=== PATIENT | female | born 1985 | race Caucasian/White ===

== ENCOUNTER 2017-05-12 15:51 | Inpatient (IN) ==
[2017-05-12] MEDS ORDERED: LEVOFLOXACIN INJ 500 MG in PREMIX 1 EACH IV SCH (17:00)
[2017-05-12 17:24] LABS: ABG Base Excess -2.5 MMOL/L (-2.5-2.5); ABG HCO3 19.5 MMOL/L (20-26); ABG Oxygen Saturation 96.9 % (95-100); ABG PH 7.477 (7.35-7.45); ABG PO2 83.4 MM HG (80-95); ABG TCO2 20.3 MMOL/L (23-27)
[2017-05-12] MEDS ORDERED: GLUCAGON 1 MG VIAL IM PRN (17:24)
[2017-05-12] MEDS ORDERED: DEXTROSE 50% 25 GM/50 ML VIAL IV PRN (17:24)
[2017-05-12] MEDS ORDERED: ZALEPLON 5 MG CAPSULE PO PRN (17:25)
[2017-05-12] MEDS ORDERED: MORPHINE 2 MG/1 ML SYRINGE IV PRN (17:25)
--- NOTE | 2017-05-12 17:40 | Hospitalist History & Physical ---
Addendum entered and electronically signed by Otis Euceda MD 05/12/17 19:59: I evaluated this patient and completed independent history and physical examination. I coordinated care with GERMANIA Hackett. I agree with the documentation that she provides below. The patient's examination reveals right greater than left CVA tenderness. The patient has mild diaphoresis consistent with infection. Ledbetter McBurney point tenderness was not present. The patient is now on IV antibiotics, hydration, and CT scan has been obtained. Interpretation is pending. Original Note: <Katy Card - Last Filed: 05/12/17 17:27> History of Present Illness Chief complaint: Low back pain/fever/chills History of present illness: This is a very pleasant 32-year-old female that presented to [facility] as a direct admit from [facility] for the evaluation of lower back pain, chills, and fever. The patient has a medical history significant for [id number] diabetes mellitus, depression, and morbid obesity. Patient reported the onset of symptoms 3 days prior to presentation. The patient reported her symptoms initially started as lower back pain and gradually worsened to include fever chills. She reported that she took her temperature on yesterday and it was noted at 104.9. The patient reported that she took some acetaminophen and applied cool compresses however, her fevers fail to improve. She did report that her fever decreased however she remained febrile and reported a fever at 103.4. She reported that she remained febrile throughout the night despite multiple interventions; prompting her to present to the [facility] for further evaluation. The patient was assessed at the time of presentation the [facility]. The patient was noted to be afebrile at 98.9. Labs were obtained which were significant for white blood cell count 21.7, hemoglobin 40.1, hematocrit 42.8, platelet count 205. Urinalysis was essentially remarkable for leukocyte esterase moderate amount, negative for nitrates, urine protein 30, urine glucose normal, ketones 40, white blood cellS 20-50, bacteria few, squamous epithelial cells few, and no mucus was noted. The patient was also noted to be experiencing right-sided costovertebral angle tenderness upon gentle palpation. Hospital Medicine at [facility] was contacted regarding the inpatient admission and the patient was subsequently transferred to [facility] for continuation of care. The patient has been admitted to the hospitalist service. Home medications have been reviewed and reconciled. CODE STATUS discussed; patient is FULL CODE. Home Medications Medication Instructions Recorded Confirmed Type Fluoxetine HCl [Prozac] 80 mg PO DAILY 05/12/17 05/12/17 History buPROPion XL [Wellbutrin Xl] 300 mg PO DAILY 05/12/17 05/12/17 History metFORMIN [Glucophage] 500 mg PO DAILY 05/12/17 05/12/17 History Allergies Allergy/AdvReac Type Severity Reaction Status Date / Time No Known Allergies Allergy Verified 05/12/17 17:15 Medical,Surgical,& Family Hx - Medical History Reproductive: History of: Reproductive Problems (PCOS) - Surgical History Reproductive Surgeries: Surgical HX of;: Gynecologic Surgery (one ovary removed) - Family History Family History: Reports;: Family Hypertension - Social History Smoking Status: Never smoker Frequency of Alcohol Use: None Type of Drug Use: None Marital Status: Lives With:: Spouse Functional capacity: independent ambulation 12 point system: reviewed and no additional remarkable complaints except as stated Exam - Constitutional Vitals: Period Temp Pulse Resp BP Sys/Hammond Pulse Ox Last 24 Hr 98.4 F 94 20 129/68 92 General appearance: no acute distress, morbidly obese - Head Head exam: Present: normal inspection, normocephalic, atraumatic - Eye Eye exam: Present: EOMI, conjunctival injection Pupils: Present: LADY - ENT ENT exam: Present: normal exam, normal external ear exam - Neck Neck exam: Present: normal inspection, thyromegaly. Absent: lymphadenopathy, meningismus, tenderness - Respiratory Respiratory exam: Present: clear to auscultation bilaterally, other - Cardiovascular Cardiovascular exam: Present: regular rate and rhythm. Absent: carotid bruit, diastolic murmur, gallop, irregular rhythm, JVD, rubs, systolic murmur - GI/Abdominal GI/Abdominal exam: Present: normal bowel sounds - Extremities Exam Extremities exam: Present: normal inspection, normal capillary refill, full ROM , edema (Trace edema noted to bilateral lower extremities) - Back Exam Back exam: Present: CVA tenderness (R) - Neurological Exam Neurological exam: Present: alert, oriented X3 ( ) - Psychiatric Psychiatric exam: Present: normal affect, normal mood - Skin Skin exam: Present: normal color, warm, dry Results - Labs Lab Results: I have reviewed the past 24 hour labs <Otis Euceda - Last Filed: 05/12/17 18:23> History of Present Illness History of present illness: Ms. Love is a 32 year old female Exam - Constitutional Vitals: Period Temp Pulse Resp BP Sys/Hammond Pulse Ox Last 24 Hr 98.4 F 94 20 129/68 92 Results - Labs CBC & BMP: 05/12/17 17:40
[2017-05-12] MEDS: SODIUM CHLORIDE 0.9% 1,000 ML IV SCH (17:47)
[2017-05-12 18:09] LABS: Basophils # 0.1 10*3/uL (0.0-0.2); Basophils % 0.3 % (0.0-0.8); Eosinophils # 0.1 10*3/uL (0.0-0.87); Eosinophils % 0.4 % (0.00-10.9); Hematocrit 41.1 VOL% (35.7-47.0); Hemoglobin 13.9 GM/DL (12.0-16.0); Immature Granulocytes % 0.6 %; Immature Granulocytes Absolute 0.12 #; Lymphocytes # 3.6 10*3/uL (1.4-4.0); Lymphocytes % 18.5 % (21.3-54.2); Mean Corpuscular HGB Conc 33.8 GM/DL (32-36); Mean Corpuscular Hemoglobin 31 PG (27-34); Mean Corpuscular Volume 91.9 FL (87-102); Mean Platelet Volume 9.8 FL (9.6-12.0); Monocytes # 1.8 10*3/uL (0.11-0.8); Monocytes % 9.3 % (1.7-12.7); Neutrophils # 13.9 10*3/uL (1.4-7.4); Neutrophils % 70.9 % (38.7-73.9); Platelet Count 209 T/CUMM (130-400); Red Blood Count 4.47 MC/CUMM (3.8-5.5); Red Cell Distribution Width 12.8 % (9.3-17.3); White Blood Count 19.6 T/CUMM (4-12)
[2017-05-12 18:40] LABS: Albumin 3.6 G/DL (3.4-5.0); Bilirubin,Total 1.2 MG/DL (0.2-1.0); Calcium 8.9 MG/DL (8.5-10.1); Osmolality,Calculated 272.7 MOS/KG (273-304); Potassium 3.2 MMOL/L (3.5-5.1); Risk Ratio 2.2; Total Protein 7.5 G/DL (6.4-8.3); VLDL CHOLESTEROL 10.6 MG/DL
[2017-05-12] MEDS: PIPERACILLIN/TAZOBACTAM 3,375 MG in SODIUM CHLORIDE 0.9% 50 ML IV SCH (19:03)
--- NOTE | 2017-05-12 19:56 | CT Report ---
Exam: CT abdomen and pelvis with intravenous contrast Exam date: 05/12/2017 4:37 PM Clinical History: 32 years,Female, fever abdominal pain, generalized Technique: Axial computed tomography images of the abdomen and pelvis with intravenous contrast. All CT scans at this facility use one or more dose reduction techniques. Automated exposure control, MA/KV adjustment per patient size (including targeted exam Square dose is matched to indication) or iterative reconstruction technique Comparison: September 23, 2014 Findings: Lower thorax: No acute pathology within the lung bases. Abdomen: Liver: Right hepatic lobe hemangioma is stable in the interim. Gallbladder and bile ducts: Pancreas: Pancreas is normal. Spleen: Spleen is normal. Adrenals: No adrenal mass. Kidneys and ureters: Normal in size, echotexture and morphology. No hydronephrosis. No ureteral calculus. Stomach and bowel: No evidence of acute gastritis, colitis or enteritis. No bowel obstruction. Appendix: No primary or secondary signs to suggest appendicitis. Pelvis: Bladder: Unremarkable Reproductive: Unremarkable as visualized. Abdomen and pelvis: Intraperitoneal space: No pneumoperitoneum. No free intraperitoneal fluid Bones/joints: No acute osseous abnormality. Soft tissues: No mass Vasculature: No aortic aneurysm. Lymph nodes: No adenopathy Impression: 1. No acute findings to explain patient's symptoms PROCEDURE INTERPRETED AT [facility] DEPARTMENT OF RADIOLOGY Final Report Signed by: Marta Prado MD
[2017-05-12] MEDS: DOCUSATE SODIUM 100 MG CAPSULE PO SCH (21:09)
[2017-05-12] MEDS: INSULIN REGULAR 100 UNIT/ML SUBCUT SCH (21:09)
[2017-05-12] MEDS: ENOXAPARIN 40 MG/0.4 ML SYRINGE SUBCUT SCH (21:09)
[2017-05-13] MEDS: PIPERACILLIN/TAZOBACTAM 3,375 MG in SODIUM CHLORIDE 0.9% 50 ML IV SCH (01:52)
[2017-05-13] MEDS: ACETAMINOPHEN 325 MG TABLET PO PRN ×3 (04:16→18:19)
[2017-05-13] MEDS: IBUPROFEN 800 MG TABLET PO PRN ×3 (05:30→21:51)
[2017-05-13 07:18] LABS: Basophils % 0.3 % (0.0-0.8); Eosinophils # 0.1 10*3/uL (0.0-0.87); Eosinophils % 0.4 % (0.00-10.9); Hematocrit 40.7 VOL% (35.7-47.0); Hemoglobin 13.4 GM/DL (12.0-16.0); Immature Granulocytes % 0.4 %; Immature Granulocytes Absolute 0.07 #; Lymphocytes # 1.5 10*3/uL (1.4-4.0); Lymphocytes % 9.5 % (21.3-54.2); Mean Corpuscular HGB Conc 32.9 GM/DL (32-36); Mean Corpuscular Hemoglobin 30 PG (27-34); Mean Corpuscular Volume 91.7 FL (87-102); Mean Platelet Volume 10.4 FL (9.6-12.0); Monocytes # 1.4 10*3/uL (0.11-0.8); Neutrophils # 12.7 10*3/uL (1.4-7.4); Neutrophils % 80.4 % (38.7-73.9); Platelet Count 176 T/CUMM (130-400); Red Blood Count 4.44 MC/CUMM (3.8-5.5); Red Cell Distribution Width 12.5 % (9.3-17.3); White Blood Count 15.8 T/CUMM (4-12)
[2017-05-13] MEDS ORDERED: DEXTROSE 50% 25 GM/50 ML SYRINGE IV PRN (07:30)
[2017-05-13 07:45] LABS: Albumin 3.3 G/DL (3.4-5.0); Bilirubin,Total 1.3 MG/DL (0.2-1.0); Calcium 8.4 MG/DL (8.5-10.1); Magnesium 2.3 MG/DL (1.8-2.4); Osmolality,Calculated 274.5 MOS/KG (273-304); Potassium 3.5 MMOL/L (3.5-5.1); Total Protein 6.9 G/DL (6.4-8.3)
[2017-05-13 08:36] LABS: HIV Antigen/Antibody Result Nonreactive (Nonreactive)
[2017-05-13] MEDS ORDERED: PIPERACILLIN/TAZOBACTAM 3,375 MG in SODIUM CHLORIDE 0.9% 100 ML IV SCH (09:00)
[2017-05-13] MEDS: FLUoxetine 20 MG CAPSULE PO SCH (09:17)
[2017-05-13] MEDS: DOCUSATE SODIUM 100 MG CAPSULE PO SCH ×2 (09:17→21:51)
[2017-05-13] MEDS: PANTOPRAZOLE 40 MG TABLET PO SCH (09:17)
[2017-05-13] MEDS: INSULIN REGULAR 100 UNIT/ML SUBCUT SCH ×3 (09:17→17:26)
[2017-05-13] MEDS: SODIUM CHLORIDE 0.9% 1,000 ML IV SCH ×3 (09:18→22:59)
--- NOTE | 2017-05-13 10:55 | Hospitalist Progress Note ---
<Katy Card - Last Filed: 05/13/17 13:03> Assessment and Plan (1) Urinary tract infection Status: Acute Assessment and plan: We will continue rehydration, empiric antibiotic coverage, and await culture sensitivity for further direction. Current Visit: Yes (2) Leukocytosis Status: Acute Assessment and plan: Pancultures obtained; empiric antibiotic coverage in progress. Noted decrease in white blood cell count; WBC is noted 15.8 today down from 19.6 at the time of admission. CT abdomen and pelvis was essentially unremarkable for the presence of any acute abnormalities. We will continue supportive care as previously ordered. Current Visit: Yes Hospitalist: Subjective Interval history: Patient seen and examined; chart reviewed. No significant overnight events reported per staff. Exam - Constitutional Vitals: Period Temp Pulse Resp BP Sys/Hammond Pulse Ox Last 24 Hr 97.5 F-103.0 F 67-96 18-22 113-130/58-73 92-99 General appearance: no acute distress, over weight - Head Head exam: Present: normal inspection, normocephalic, atraumatic - Eye Eye exam: Present: EOMI. Absent: conjunctival injection Pupils: Present: LADY, normal accommodation - ENT ENT exam: Present: normal exam, normal external ear exam, normal oropharynx - Neck Neck exam: Present: normal inspection. Absent: lymphadenopathy, meningismus, tenderness, thyromegaly - Respiratory Respiratory exam: Present: clear to auscultation bilaterally. Absent: rales, rhonchi, stridor, wheezes - Cardiovascular Cardiovascular exam: Present: regular rate and rhythm. Absent: carotid bruit, diastolic murmur, gallop, JVD, rubs, systolic murmur - GI/Abdominal GI/Abdominal exam: Present: normal bowel sounds, soft - Extremities Exam Extremities exam: Present: normal inspection, normal capillary refill, full ROM. Absent: edema - Back Exam Back exam: Present: CVA tenderness (R) - Neurological Exam Neurological exam: Present: alert, oriented X3, altered - Psychiatric Psychiatric exam: Present: normal affect, normal mood - Skin Skin exam: Present: normal color, warm, dry Results - Labs CBC & BMP: 05/13/17 04:47 05/13/17 04:47 Lab Results: I have reviewed the past 24 hour labs <Bentley Smith - Last Filed: 05/13/17 13:13> Hospitalist: Subjective Interval history: Patient seen and examined independently of SURESH Card, agree with history, assessment and plan as documented. Attempting to recollect urine sample for ua. Patient feeling better and leukocytosis is improving. Remains febrile this morning. Continue abx. F/u UA Exam - Constitutional Vitals: Period Temp Pulse Resp BP Sys/Hammond Pulse Ox Last 24 Hr 97.5 F-103.0 F 67-96 18-22 113-130/58-73 92-99 Results - Labs CBC & BMP: 05/13/17 04:47 05/13/17 04:47
[2017-05-13 11:28] LABS: Hepatitis A Ab IgM Quant 0.12 Index; Hepatitis A Ab IgM Result Negative (Negative); Hepatitis B Core IgM Quant 0.14 Index; Hepatitis B Core IgM Result Negative (Negative); Hepatitis B Surface Ag Quant 0.38 Index; Hepatitis B Surface Ag Result Negative (Negative); Hepatitis C Virus Ab Result Negative (Negative)
[2017-05-13 13:11] LABS: Apearance,Urine Slightly Hazy (Clear); Bacteria,Urine Few /HPF (Few); Bilirubin,Urine Negative (Negative); Blood, Urine Moderate mg/dL (Negative); Glucose,Urine (UA) Negative (Negative); Ketones,Urine Negative (Negative); Nitrite,Urine Negative (Negative); Protein,Urine Negative; RBC,Urine 6 /HPF (0-4); Squamous Epithelial Cell,Urine Occasional /HPF (0-10); Urine Color Yellow (Yellow); Urine Specific Gravity 1.011 (1.001-1.035); Urine Urobilinogen < 2.0 EU/DL (0.2-1.0); WBC,Urine 31 /HPF (0-6)
[2017-05-13] MEDS: ONDANSETRON 4 MG/2 ML VIAL IV PRN (14:58)
--- NOTE | 2017-05-13 19:45 | Order Completion Report ---
See report scanned to EMR
[2017-05-13] MEDS: ENOXAPARIN 40 MG/0.4 ML SYRINGE SUBCUT SCH (21:51)
[2017-05-14] MEDS: INSULIN REGULAR 100 UNIT/ML SUBCUT SCH ×5 (03:54→21:38)
[2017-05-14] MEDS: ONDANSETRON 4 MG/2 ML VIAL IV PRN (06:40)
[2017-05-14 07:23] LABS: Basophils # 0.1 10*3/uL (0.0-0.2); Basophils % 0.3 % (0.0-0.8); Eosinophils % 0.2 % (0.00-10.9); Hematocrit 39.6 VOL% (35.7-47.0); Hemoglobin 13.3 GM/DL (12.0-16.0); Immature Granulocytes % 0.6 %; Lymphocytes % 17.2 % (21.3-54.2); Mean Corpuscular HGB Conc 33.6 GM/DL (32-36); Mean Corpuscular Hemoglobin 31 PG (27-34); Mean Corpuscular Volume 92.5 FL (87-102); Mean Platelet Volume 10.1 FL (9.6-12.0); Monocytes # 1.4 10*3/uL (0.11-0.8); Monocytes % 8.2 % (1.7-12.7); Neutrophils # 12.8 10*3/uL (1.4-7.4); Neutrophils % 73.5 % (38.7-73.9); Platelet Count 194 T/CUMM (130-400); Red Blood Count 4.28 MC/CUMM (3.8-5.5); Red Cell Distribution Width 12.7 % (9.3-17.3); White Blood Count 17.4 T/CUMM (4-12)
[2017-05-14 07:46] LABS: Calcium 8.5 MG/DL (8.5-10.1); Magnesium 2.2 MG/DL (1.8-2.4); Osmolality,Calculated 279.1 MOS/KG (273-304); Potassium 3.9 MMOL/L (3.5-5.1)
[2017-05-14 07:58] LABS: Band Neutrophils 4 % (0-10); Hypochromasia Slight; Lymphocytes 24 % (20-55); Platelet Estimate Adequate; Segmented Neutrophils 67 % (50-85); Total Cells Counted 100
[2017-05-14] MEDS: IBUPROFEN 800 MG TABLET PO PRN (08:09)
[2017-05-14] MEDS: PANTOPRAZOLE 40 MG TABLET PO SCH (08:10)
[2017-05-14] MEDS: DOCUSATE SODIUM 100 MG CAPSULE PO SCH ×2 (08:10→21:37)
[2017-05-14] MEDS: FLUoxetine 20 MG CAPSULE PO SCH (08:10)
[2017-05-14] MEDS: SODIUM CHLORIDE 0.9% 1,000 ML IV SCH ×2 (08:22→19:25)
[2017-05-14] MEDS ORDERED: DEXTROSE 50% 25 GM/50 ML VIAL IV PRN (08:30)
--- NOTE | 2017-05-14 12:29 | Infectious Disease Consult ---
Assessment and Plan (1) Fever Status: Acute Assessment and plan: Anything to see which could be possible as a urinary tract infection. I expected her to have actual CVA tenderness but this was not elicited on exam. I am therefore doubtful that she has pyelonephritis. She did get bitten by tick but if she had a rickettsial infection would expect abnormalities of the CBC, specifically cytopenias. West Nile fever is a possibility as well but again would expect cytopenias. Recommendations: 1. Agree with empiric ceftriaxone 2. Add doxycycline 3. Check rickettsial serologies, as well as West Nile serology 4. Chest x-ray for completeness sake 4. Follow-up urine culture results, as well as blood cultures Thank you very much for the consult. Will follow. Discussed with patient's mother at bedside Discussed with Dr. Smith Current Visit: Yes History of Present Illness Chief complaint: Fever History of present illness: Ms. Love is a 32 year old female who is well until 3 days ago when she started having fever to over 103 at home. About a day before she had mild sore throat and was feeling some malaise for few days prior. Patient returned from [place] about one half weeks ago. She states she visited friends and family did not have any significant exposures except he did find a tick on her left breast which was easily pulled off her skin and he did not appear to be engorged with blood. She never developed a rash in the area of the tick bite. Patient reports onset also of pain to the back a bit to the right side since the day before the onset of the fever. No increased urinary frequency hematuria or dysuria. Because of his fever she came to hospital. She has been having intermittent fever since admission even on ceftriaxone. She has not had any cough shortness of breath or pleuritic chest pain. She had nausea and vomited once this morning but no abdominal pain or diarrhea. Her appetite has been fair. No ill contacts at home. Home Medications Medication Instructions Recorded Confirmed Type Fluoxetine HCl [Prozac] 80 mg PO DAILY 05/12/17 05/12/17 History buPROPion XL [Wellbutrin Xl] 300 mg PO DAILY 05/12/17 05/12/17 History metFORMIN [Glucophage] 500 mg PO DAILY 05/12/17 05/12/17 History Allergies Allergy/AdvReac Type Severity Reaction Status Date / Time No Known Allergies Allergy Verified 05/12/17 17:15 12 point system: reviewed and no additional remarkable complaints except as stated (Per HPI) Medical,Surgical,& Family Hx - Medical History Reproductive: History of: Reproductive Problems (PCOS) - Surgical History Reproductive Surgeries: Surgical HX of;: Gynecologic Surgery (one ovary removed) - Family History Family History: Reports;: Family Hypertension - Social History Smoking Status: Never smoker Frequency of Alcohol Use: None Type of Drug Use: None Infectious Disease Exam H&P - Constitutional Vitals: Vital Signs Temp Pulse Resp BP Pulse Ox 98.2 F 66 18 122/59 95 05/14/17 11:43 05/14/17 11:43 05/14/17 11:43 05/14/17 11:43 05/14/17 11:43 Intake and Output 05/13/17 05/14/17 05/14/17 23:59 07:59 15:59 Intake Total 1290 / 1290 240 / 240 1050 / 1050 Balance 1290 / 1290 240 / 240 1050 / 1050 Intake: IV 1050 / 1050 1050 / 1050 Zosyn 3,375 mg In Ns 50 50 / 50 ml @ 25 mls/hr IV Q8H ROSSY Rx#:[id number] Ns 1,000 ml @ 125 mls/hr 1000 / 1000 1000 / 1000 IV .Q8H ROSSY Rx#: [id number] Rocephin 1,000 mg In Ns 50 / 50 50 ml @ 100 mls/hr IV Q24H ROSSY Rx#:[id number] Oral 240 / 240 240 / 240 Other: Voiding Method Toilet Toilet # Voids 2 2 # Bowel Movements 0 0 Exam: General: Patient very comfortable, completely nontoxic appearing, smiling, ambulating HEENT: Mucous membranes pink and moist, anicteric acyanotic, LADY, no oropharyngeal exudates Neck: Supple, no thyroid gland enlargement, no lymphadenopathy Respiratory system: Breath sounds vesicular, no crepitations or wheezes Cardiovascular: Normal S1 and S2, no murmurs appreciated Abdomen: Normal bowel sounds, soft nontender throughout, no organomegaly or mass Genitourinary: No suprapubic pain or bladder distention, no CVA tenderness Extremities: no edema Skin: No rash Reports - Labs CBC & BMP: 05/14/17 06:09 05/14/17 06:09 Labs: Laboratory Results - last 24 hr 05/12/17 05/13/17 05/13/17 16:37 17:11 20:20 WBC RBC Hgb Hct MCV MCH MCHC RDW Plt Count MPV Neut % (Auto) Lymph % (Auto) [place] % (Auto) Eos % (Auto) Baso % (Auto) Neut # (Auto) Lymph # (Auto) [place] # (Auto) Eos # (Auto) Baso # (Auto) Total Counted Immature Gran % Nucleated RBC % Immature Gran # Segmented Neutrophils Band Neutrophils Lymphocytes Monocytes Nucleated RBCs # Platelet Estimate Immature Plt Fraction Hypochromasia Sodium Potassium Chloride Carbon Dioxide Anion Gap BUN Creatinine GFR Calculation BUN/Creatinine Ratio Glucose POC Glucose 114 H 75 Calculated Osmolality Calcium Magnesium Urine Color Yellow Urine Appearance Slightly hazy Urine pH 5.0 Ur Specific [place] 1.011 Urine Protein Negative Urine Glucose (UA) Negative Urine Ketones Negative Urine Blood Moderate Urine Nitrate Negative Urine Bilirubin Negative Urine Urobilinogen < 2.0 H Urine Leukocytes Small H Urine RBC 6 Urine WBC 31 Ur Squamous Epith Cells Occasional Urine Bacteria Few Ur Culture Indicated? Results to follow 05/14/17 05/14/17 05/14/17 06:09 06:09 08:43 WBC 17.4 H RBC 4.28 Hgb 13.3 Hct 39.6 MCV 92.5 MCH 31 MCHC 33.6 RDW 12.7 Plt Count 194 MPV 10.1 Neut % (Auto) 73.5 Lymph % (Auto) 17.2 L [place] % (Auto) 8.2 Eos % (Auto) 0.2 Baso % (Auto) 0.3 Neut # (Auto) 12.8 H Lymph # (Auto) 3.0 [place] # (Auto) 1.4 H Eos # (Auto) 0.0 Baso # (Auto) 0.1 Total Counted 100 Immature Gran % 0.6 Nucleated RBC % 0.0 Immature Gran # 0.10 Segmented Neutrophils 67 Band Neutrophils 4 Lymphocytes 24 Monocytes 5 Nucleated RBCs # 0.00 Platelet Estimate Adequate Immature Plt Fraction 0.0 Hypochromasia Slight Sodium 142 Potassium 3.9 Chloride 109 H Carbon Dioxide 25 Anion Gap 11.9 BUN 6 L Creatinine 0.80 GFR Calculation 125 BUN/Creatinine Ratio 7.00 Glucose 86 POC Glucose 163 H Calculated Osmolality 279.1 Calcium 8.5 Magnesium 2.2 Urine Color Urine Appearance Urine pH Ur Specific [place] Urine Protein Urine Glucose (UA) Urine Ketones Urine Blood Urine Nitrate Urine Bilirubin Urine Urobilinogen Urine Leukocytes Urine RBC Urine WBC Ur Squamous Epith Cells Urine Bacteria Ur Culture Indicated? 05/14/17 11:18 WBC RBC Hgb Hct MCV MCH MCHC RDW Plt Count MPV Neut % (Auto) Lymph % (Auto) [place] % (Auto) Eos % (Auto) Baso % (Auto) Neut # (Auto) Lymph # (Auto) [place] # (Auto) Eos # (Auto) Baso # (Auto) Total Counted Immature Gran % Nucleated RBC % Immature Gran # Segmented Neutrophils Band Neutrophils Lymphocytes Monocytes Nucleated RBCs # Platelet Estimate Immature Plt Fraction Hypochromasia Sodium Potassium Chloride Carbon Dioxide Anion Gap BUN Creatinine GFR Calculation BUN/Creatinine Ratio Glucose POC Glucose 82 Calculated Osmolality Calcium Magnesium Urine Color Urine Appearance Urine pH Ur Specific [place] Urine Protein Urine Glucose (UA) Urine Ketones Urine Blood Urine Nitrate Urine Bilirubin Urine Urobilinogen Urine Leukocytes Urine RBC Urine WBC Ur Squamous Epith Cells Urine Bacteria Ur Culture Indicated? - Reports Microbiology: Microbiology 05/13/17 Unknown Urine Culture - Preliminary Urine,Clean Catch No Growth at 24 hours. 05/13/17 05:38 Blood Culture - Preliminary Blood No growth at 1 day 05/13/17 05:38 Blood Culture - Preliminary Blood No growth at 1 day 05/13/17 17:39 Influenza Types A,B Antigen (KATHRINE) - Final Nasal Aspirate Negative for Influenza A Ag Negative for Influenza B Ag 05/12/17 17:40 Blood Culture - Preliminary Blood No growth at 1 day 05/12/17 17:40 Blood Culture - Preliminary Blood No growth at 1 day - Diagnostic Findings Procedure: CT Abdomen and Pelvis: image reviewed by me, report reviewed by me ( No mention of perinephric stranding)
[2017-05-14] MEDS: DOXYCYCLINE HYCLATE INJ 100 MG in SODIUM CHLORIDE 0.9% 100 ML IV SCH (14:42)
[2017-05-14] MEDS: ACETAMINOPHEN 325 MG TABLET PO PRN ×2 (14:52→21:41)
--- NOTE | 2017-05-14 14:58 | XRay Report ---
XR chest 2V Indication: Fever, sore throat Comparison: None Technique: Frontal and lateral views of the chest. Findings: Heart size within normal limits. Chronic change of the lungs without focal consolidation, pleural effusion, or pneumothorax. Visualized osseous and surrounding soft tissue structures demonstrate no acute abnormality. Diffuse osteopenia. IMPRESSION: No acute cardiopulmonary process demonstrated. PROCEDURE INTERPRETED AT [facility] DEPARTMENT OF RADIOLOGY Final Report Signed by: Dr Brady Kuhn
--- NOTE | 2017-05-14 17:09 | Hospitalist Progress Note ---
<Katy Card - Last Filed: 05/14/17 17:07> Assessment and Plan (1) Urinary tract infection Status: Acute Assessment and plan: We will continue rehydration, empiric antibiotic coverage, and await culture sensitivity for further direction. 05/13-we will continue empiric antibiotic coverage as previously ordered. Urine culture preliminary report reported no growth at 24 hours. We will continue supportive care. Current Visit: Yes (2) Leukocytosis Status: Acute Assessment and plan: Pancultures obtained; empiric antibiotic coverage in progress. Noted decrease in white blood cell count; WBC is noted 15.8 today down from 19.6 at the time of admission. CT abdomen and pelvis was essentially unremarkable for the presence of any acute abnormalities. We will continue supportive care as previously ordered. 05/14-the patient was febrile overnight; T-max 101.4. Blood culture are essentially unremarkable no growth to date reported. White blood cell count noted at 17.4. We will continue supportive care. We will consult infectious disease to evaluate fever of unknown origin. We will continue empiric antibiotic coverage and await further direction. Current Visit: Yes Hospitalist: Subjective Interval history: Patient seen and examined; chart reviewed. Patient remained febrile overnight; T-max noted at 101.4. Infectious disease consultations were requested to evaluate. Exam - Constitutional Vitals: Period Temp Pulse Resp BP Sys/Hammond Pulse Ox Last 24 Hr 98.2 F-102 F 66-98 18-20 91-122/51-59 92-98 General appearance: over weight - Head Head exam: Present: normal inspection, normocephalic, atraumatic - Eye Eye exam: Present: EOMI, conjunctival injection Pupils: Present: LADY, normal accommodation - ENT ENT exam: Present: normal exam, normal external ear exam, normal oropharynx - Neck Neck exam: Present: normal inspection. Absent: lymphadenopathy, meningismus, tenderness, thyromegaly - Respiratory Respiratory exam: Present: clear to auscultation bilaterally. Absent: rales, rhonchi, stridor, wheezes - Cardiovascular Cardiovascular exam: Present: regular rate and rhythm. Absent: carotid bruit, diastolic murmur, gallop, JVD, rubs, systolic murmur - GI/Abdominal GI/Abdominal exam: Present: normal bowel sounds, soft - Extremities Exam Extremities exam: Present: normal inspection, normal capillary refill, full ROM. Absent: edema - Back Exam Back exam: Present: normal inspection - Neurological Exam Neurological exam: Present: alert, oriented X3, CN II-XII intact - Psychiatric Psychiatric exam: Present: normal affect, normal mood - Skin Skin exam: Present: normal color, warm, dry Results - Labs CBC & BMP: 05/14/17 06:09 05/14/17 06:09 Lab Results: I have reviewed the past 24 hour labs <Bentley Smith - Last Filed: 05/14/17 17:49> Hospitalist: Subjective Interval history: Patient seen and examined independently of SURESH Card, agree with assessment and plan as documented. ID on board. Started on doxycycline Exam - Constitutional Vitals: Period Temp Pulse Resp BP Sys/Hammond Pulse Ox Last 24 Hr 98.2 F-102 F 66-98 18-20 91-122/51-59 92-98 Results - Labs CBC & BMP: 05/14/17 06:09 05/14/17 06:09
[2017-05-14] MEDS: ENOXAPARIN 40 MG/0.4 ML SYRINGE SUBCUT SCH (21:37)
[2017-05-15] MEDS: DOXYCYCLINE HYCLATE INJ 100 MG in SODIUM CHLORIDE 0.9% 100 ML IV SCH ×2 (01:14→18:06)
[2017-05-15] MEDS: SODIUM CHLORIDE 0.9% 1,000 ML IV SCH ×3 (01:15→23:59)
[2017-05-15 06:34] LABS: Basophils % 0.2 % (0.0-0.8); Eosinophils # 0.2 10*3/uL (0.0-0.87); Eosinophils % 1.4 % (0.00-10.9); Hematocrit 32.3 VOL% (35.7-47.0); Immature Granulocytes % 0.4 %; Immature Granulocytes Absolute 0.05 #; Lymphocytes # 3.1 10*3/uL (1.4-4.0); Mean Corpuscular HGB Conc 34.4 GM/DL (32-36); Mean Corpuscular Hemoglobin 31 PG (27-34); Mean Platelet Volume 10.2 FL (9.6-12.0); Monocytes # 1.2 10*3/uL (0.11-0.8); Monocytes % 10.1 % (1.7-12.7); Neutrophils # 6.9 10*3/uL (1.4-7.4); Neutrophils % 60.9 % (38.7-73.9); Platelet Count 159 T/CUMM (130-400); Red Blood Count 3.55 MC/CUMM (3.8-5.5); Red Cell Distribution Width 12.7 % (9.3-17.3)
[2017-05-15 06:35] LABS: Hemoglobin 11.1 GM/DL (12.0-16.0); White Blood Count 11.4 T/CUMM (4-12)
[2017-05-15 06:59] LABS: Calcium 7.9 MG/DL (8.5-10.1); Magnesium 2.2 MG/DL (1.8-2.4); Osmolality,Calculated 281.8 MOS/KG (273-304); Potassium 3.6 MMOL/L (3.5-5.1)
[2017-05-15 07:05] LABS: Band Neutrophils 4 % (0-10); Eosinophils 1 % (0-10); Hypochromasia 1+; Lymphocytes 28 % (20-55); Segmented Neutrophils 57 % (50-85); Total Cells Counted 100
[2017-05-15 07:06] LABS: Microcytosis Slight; Platelet Estimate Adequate
[2017-05-15] MEDS: INSULIN REGULAR 100 UNIT/ML SUBCUT SCH ×4 (10:09→20:05)
[2017-05-15] MEDS: DOCUSATE SODIUM 100 MG CAPSULE PO SCH ×2 (10:14→20:28)
[2017-05-15] MEDS: PANTOPRAZOLE 40 MG TABLET PO SCH (10:14)
--- NOTE | 2017-05-15 11:01 | Hospitalist Progress Note ---
<Katy Card - Last Filed: 05/15/17 10:59> Assessment and Plan (1) Urinary tract infection Status: Acute Assessment and plan: We will continue rehydration, empiric antibiotic coverage, and await culture sensitivity for further direction. 05/13-we will continue empiric antibiotic coverage as previously ordered. Urine culture preliminary report reported no growth at 24 hours. We will continue supportive care. 05/14-urine culture unremarkable for any growth at 48 hours. Current Visit: Yes (2) Leukocytosis Status: Acute Assessment and plan: Pancultures obtained; empiric antibiotic coverage in progress. Noted decrease in white blood cell count; WBC is noted 15.8 today down from 19.6 at the time of admission. CT abdomen and pelvis was essentially unremarkable for the presence of any acute abnormalities. We will continue supportive care as previously ordered. 05/14-the patient was febrile overnight; T-max 101.4. Blood culture are essentially unremarkable no growth to date reported. White blood cell count noted at 17.4. We will continue supportive care. We will consult infectious disease to evaluate fever of unknown origin. We will continue empiric antibiotic coverage and await further direction. 05/15-patient evaluated by infectious disease on yesterday recommendations were given. The patient was started on doxycycline in addition to Rocephin. White blood cell count noted at 11.4. We will continue doxycycline and Rocephin per infectious disease recommendation. Will recheck CBC in a.m. Current Visit: Yes Hospitalist: Subjective Interval history: Patient seen and examined; chart reviewed. No significant overnight events reported per staff. The patient was evaluated by infectious disease on yesterday and recommendations were given. The patient has remained afebrile since the initiation of doxycycline. White blood cell count noted at 11.4 today. If condition continues to improve, the patient may be appropriate for discharge in a.m. Exam - Constitutional Vitals: Period Temp Pulse Resp BP Sys/Hammond Pulse Ox Last 24 Hr 98.2 F-99.1 F 66-82 18-20 111-123/57-61 92-97 General appearance: morbidly obese - Head Head exam: Present: normal inspection, normocephalic, atraumatic - Eye Eye exam: Present: EOMI. Absent: conjunctival injection Pupils: Present: LADY, normal accommodation - ENT ENT exam: Present: normal exam, normal external ear exam, normal oropharynx - Neck Neck exam: Present: normal inspection. Absent: lymphadenopathy, meningismus, tenderness, thyromegaly - Respiratory Respiratory exam: Present: clear to auscultation bilaterally. Absent: rales, rhonchi, stridor, wheezes - Cardiovascular Cardiovascular exam: Present: regular rate and rhythm. Absent: carotid bruit, diastolic murmur, gallop, JVD, rubs, systolic murmur - GI/Abdominal GI/Abdominal exam: Present: normal bowel sounds, soft - Extremities Exam Extremities exam: Present: normal inspection, normal capillary refill, full ROM. Absent: edema - Back Exam Back exam: Present: normal inspection - Neurological Exam Neurological exam: Present: alert, oriented X3, CN II-XII intact - Psychiatric Psychiatric exam: Present: normal affect, normal mood - Skin Skin exam: Present: normal color, warm, dry Results - Labs CBC & BMP: 05/15/17 05:39 05/15/17 05:39 Lab Results: I have reviewed the past 24 hour labs <Bentley Smith - Last Filed: 05/15/17 18:28> Hospitalist: Subjective Interval history: Patient seen and examined independently of SURESH Card. Agree with assessment and plan as documented. ID assisting possible discharge soon. Exam - Constitutional Vitals: Period Temp Pulse Resp BP Sys/Hammond Pulse Ox Last 24 Hr 98.8 F-99.9 F 65-82 18-20 106-140/56-68 94-97 Results - Labs CBC & BMP: 05/15/17 05:39 05/15/17 05:39
[2017-05-15] MEDS: FLUoxetine 20 MG CAPSULE PO SCH (12:49)
--- NOTE | 2017-05-15 16:26 | Infectious Disease Progress ---
Assessment and Plan (1) Fever Status: Acute Assessment and plan: Suspect viral infection. Patient generally nontoxic, she has not had fever for 24 hours. I thought she may have had a UTI but urine cultures negative. Recommendations: Can continue current antibiotics for now, however blood cultures negative then I would discontinue ceftriaxone and we can switch her to oral doxycycline and complete a seven-day course. Discussed with patient's mother at bedside Current Visit: Yes Infectious Disease - PN: Subj Interval history: Patient complained of feeling malaise when I saw this afternoon. She has not had any fever since yesterday morning but T-max 99.9 earlier this afternoon. She complains of headache this afternoon and some pain in her neck and she describes neck stiffness but in looking at her she her neck was quite mobile. Infectious Disease Exam (PN) - Constitutional Vitals: Temp Pulse Resp BP Pulse Ox 99.9 F H 76 18 140/68 95 05/15/17 15:56 05/15/17 15:56 05/15/17 15:56 05/15/17 15:56 05/15/17 15:56 General appearance: morbidly obese Exam: General appearance: no acute distress, remains completely nontoxic appearing - Eye Eye exam: Present: EOMI. no icterus Pupils: Present: LADY - ENT ENT exam: no oropharyhgeal exudates - Neck Neck exam: Very supple - Respiratory Respiratory exam: vesicular BS, no crepitations or wheezes - Cardiovascular Cardiovascular exam: regular rate and rhythm, no murmurs - GI/Abdominal GI/Abdominal exam: normal bowel sounds, soft, non-tender, no organomegaly or mass - Extremities Exam Extremities exam: no edema - Skin Skin exam: no rash Results - Labs CBC & BMP: 05/15/17 05:39 05/15/17 05:39 Lab Results: I have reviewed the past 24 hour labs
[2017-05-15] MEDS: ACETAMINOPHEN 325 MG TABLET PO PRN (16:27)
[2017-05-15] MEDS: ENOXAPARIN 40 MG/0.4 ML SYRINGE SUBCUT SCH (20:28)
--- NOTE | 2017-05-16 08:16 | Discharge Summary ---
<Katy Card - Last Filed: 05/16/17 08:11> Hospital Course - Hospital Course Hospital Course: This is a 32-year-old female that presented to [facility] as a direct admit from [facility] on the afternoon of May 12, 2017 for the evaluation of lower back pain, chills, and fever. The patient has a medical history significant for pyy-alqzeie-sqavdcgez diabetes mellitus, depression, and morbid obesity. Patient reported the onset of symptoms 3 days prior to presentation. The patient reported her symptoms initially started as lower back pain and gradually worsened to include fever chills. She reported that she took her temperature on yesterday and it was noted at 104.9. The patient reported that she took some acetaminophen and applied cool compresses however, her fevers fail to improve. She did report that her fever decreased however she remained febrile and reported a fever at 103.4. She reported that she remained febrile throughout the night despite multiple interventions; prompting her to present to the [facility] for further evaluation. The patient was assessed at the time of presentation the [facility]. The patient was noted to be afebrile at 98.9. Labs were obtained which were significant for white blood cell count 21.7, hemoglobin 40.1, hematocrit 42.8, platelet count 205. Urinalysis was essentially remarkable for leukocyte esterase moderate amount, negative for nitrates, urine protein 30, urine glucose normal, ketones 40, white blood cellS 20-50, bacteria few, squamous epithelial cells few, and no mucus was noted. The patient was also noted to be experiencing right-sided costovertebral angle tenderness upon gentle palpation. Hospital Medicine at [facility] was contacted regarding the inpatient admission and the patient was subsequently transferred to [facility] for continuation of care. Empiric antibiotics, aggressive rehydration, pain management, and diabetes management was initiated at the time of admission. CT abdomen and pelvis ordered at the time of admission was essentially unremarkable. Transthoracic echocardiography ordered on May 13, 2017 was significant for trace tricuspid and pneumonic regurgitation however, ejection fraction was estimated at 50-55%. The patient continued to experience intermittent fevers prompting an infectious disease consultation. The patient was evaluated by infectious disease and recommendations were given. She was placed on rocephin and doxycycline. Urine culture from outside facility was reported with lebron sensitive E.coli. Empiric antibiotic coverage was readjusted and the patient's condition gradually improved. The patient's condition is stable. She has not experienced any significant overnight events. Today, we feel that she is indeed appropriate for discharge to follow-up with her primary care physician as directed. The patient will be discharged with instructions to continue doxycycline 100 mg twice daily 7 days. Diagnosis - Discharge Diagnosis (1) Urinary tract infection Status: Acute (2) Leukocytosis Status: Acute Discharge Plan - Discharge Data Disposition: Disch To Home/Self Care - Discharge Medications New Doxycycline Hyclate Cap [Vibramycin Cap] 100 mg PO BID #10 capsule Continue buPROPion XL [Wellbutrin Xl] 300 mg PO DAILY Fluoxetine HCl [Prozac] 80 mg PO DAILY metFORMIN [Glucophage] 500 mg PO DAILY - Follow Up or Referral - Forms/Instructions Exam - Constitutional Vitals: Period Temp Pulse Resp BP Sys/Hammond Pulse Ox Last 24 Hr 98.1 F-99.9 F 74-80 18-20 105-140/54-70 94-97 Discharge Results Procedures and tests throughout hospitalization: Pending Orders 05/12/17 17:40 Blood Culture Stat 05/13/17 05:38 Blood Culture Stat 05/14/17 Rickettsial Disease Panel Routine West Nile Virus Ab,IgG/M, S Routine Labs on day of discharge: Labs from last 24 hours 05/16/17 05/15/17 05/15/17 07:40 19:41 15:12 POC Glucose 99 115 H 80 Preliminary micro results at discharge 05/13/17 05:38 Blood Culture - Preliminary Blood No growth at 3 days 05/13/17 05:38 Blood Culture - Preliminary Blood No growth at 3 days 05/12/17 17:40 Blood Culture - Preliminary Blood No growth at 3 days 05/12/17 17:40 Blood Culture - Preliminary Blood No growth at 3 days DS: Provider Date of admission: 05/12/17 16:28 Primary care physician: . No PCP Attending physician on admission: Fransico Fisher MD Consults: 05/14/17 09:14 Consult to Physician [CONS] Routine Comment: Consulting Provider: Janeen Demarco When should Consulting Provider be notified: Now Discharging clinician: Katy Card CNP <Bentley Smith - Last Filed: 05/16/17 12:13> Hospital Course - Time spent with patient Time with patient DS: Less than 30 minutes Diagnosis - Discharge Diagnosis (1) Tick bite Status: Resolved (2) Fever Status: Resolved (3) Leukocytosis Status: Resolved (4) Urinary tract infection Status: Resolved Discharge Plan - Discharge Data Condition at Discharge: Stable Discharge Diet: advance to your usual diet Activity: increase activity as tolerated Hygiene: no restrictions Weight Bearing at Discharge: weight bear as tolerated Driving: no restrictions Contact your physician if you experience:: fever over 101, Shortness of breath Exam - Constitutional General appearance: normal weight - Head Head exam: Present: normocephalic, atraumatic - Eye Eye exam: Present: EOMI Pupils: Present: LADY - ENT ENT exam: Present: normal exam - Neck Neck exam: Present: normal inspection - Respiratory Respiratory exam: Present: clear to auscultation bilaterally - Cardiovascular Cardiovascular exam: Present: regular rate and rhythm - GI/Abdominal GI/Abdominal exam: Present: normal bowel sounds, soft. Absent: tenderness, rebound - Extremities Exam Extremities exam: Present: normal inspection - Back Exam Back exam: Present: normal inspection - Neurological Exam Neurological exam: Present: alert, oriented X3 - Psychiatric Psychiatric exam: Present: normal affect, normal mood - Skin Skin exam: Present: warm, intact
[2017-05-16 08:19] VITALS: BP 133/64
[2017-05-16] MEDS: INSULIN REGULAR 100 UNIT/ML SUBCUT SCH ×2 (08:57→13:02)
[2017-05-16] MEDS ORDERED: DOXYCYCLINE HYCLATE 100 MG CAPSULE PO SCH (09:00)
[2017-05-16] MEDS: DOCUSATE SODIUM 100 MG CAPSULE PO SCH (09:04)
[2017-05-16] MEDS: PANTOPRAZOLE 40 MG TABLET PO SCH (09:05)
[2017-05-16] MEDS: FLUoxetine 20 MG CAPSULE PO SCH (10:37)
[2017-05-16] MEDS: SODIUM CHLORIDE 0.9% 1,000 ML IV SCH (10:39)
--- NOTE | 2017-05-16 11:01 | Event Note ---
Patient has not had fever for over 48 hours. She feels well today and feels like she is ready to go home. Her cultures have all come back negative. I think patient can complete a 7 day course of doxycycline empirically. She can follow-up with her primary care provider for this studies are pending at the time of discharge, specifically the rickettsial and West Nile serologies.
[2017-05-21 01:46] LABS: Q Fever IgM Phase I Screen NEGATIVE (NEGATIVE); Q Fever IgM Phase II Screen NEGATIVE (NEGATIVE)
== END 2017-05-16 14:16 | disposition home or self-care (01) | DRG 690 ==
LOC: SUATTDRO 16:28 → N.2E 16:28
PROVIDERS: ADMIT Internal Medicine; ATTEND Internal Medicine